=== PATIENT | male | born 1995 | race Two or more races ===

== ENCOUNTER 2018-12-03 18:18 | Emergency (ER) | payer SELFPAY ==
[~2018-12-03] VITALS: Ht 165.1 cm; Wt 90.7 kg
--- NOTE | 2018-12-03 18:38 | PHYS DOC ---
Adult General Chief Complaint Chief Complaint: CHEST WALL PAIN HPI HPI Patient is a 23 year old presented to the ER today for evaluation of productive cough with yellow sputum for 2 weeks, having chest pain sharp in nature for 3 days. The pain gets worse with cough or taking a deep breath. Patient does not smoke, he had no previous history of asthma or heart problem. Patient had no history hypertension, no history of diabetic, no history of of coronary artery disease or blood clot disorder. Review of Systems Review of Systems Constitutional: Denies fever or chills [] Eyes: Denies change in visual acuity, redness, or eye pain [] HENT: Denies nasal congestion or sore throat [] Respiratory: Positive for cough, NO shortness of breath [] Cardiovascular: Positive for sharp chest pain. GI: Denies abdominal pain, nausea, vomiting, bloody stools or diarrhea [] : Denies dysuria or hematuria [] Musculoskeletal: Denies back pain or joint pain [] Integument: Denies rash or skin lesions [] Neurologic: Denies headache, focal weakness or sensory changes [] Endocrine: Denies polyuria or polydipsia [] All other systems were reviewed and found to be within normal limits, except as documented in this note. Allergies Allergies Allergies Coded Allergies Type Severity Reaction Last Updated Verified No Known Drug Allergies 12/03/18 No Physical Exam Physical Exam Constitutional: Well developed, well nourished, no acute distress, non-toxic appearance. [] HENT: Normocephalic, atraumatic, bilateral external ears normal, oropharynx moist, no oral exudates, nose normal. [] Eyes: PERRLA, EOMI, conjunctiva normal, no discharge. [] Neck: Normal range of motion, no tenderness, supple, no stridor. [] Cardiovascular:Heart rate regular rhythm, no murmur [] Lungs & Thorax: Bilateral breath sounds clear to auscultation [] Abdomen: Bowel sounds normal, soft, no tenderness, no masses, no pulsatile masses. [] Skin: Warm, dry, no erythema, no rash. [] Back: No tenderness, no CVA tenderness. [] Extremities: No tenderness, no cyanosis, no clubbing, ROM intact, no edema. [] Neurologic: Alert and oriented X 3, normal motor function, normal sensory function, no focal deficits noted. [] Psychologic: Affect normal, judgement normal, mood normal. [] Current Patient Data Vital Signs Vital Signs Date Time Temp Pulse Resp B/P (MAP) Pulse Ox O2 Delivery O2 Flow Rate FiO2 12/03/18 19:29 74 148/84 (105) 98 Room Air 12/03/18 18:27 99.7 14 99.7 EKG EKG EKG: RATE OF 75 BPM, NO STEMI. SINUS RHYTHM, Radiology/Procedures Radiology/Procedures [] Course & Med Decision Making Course & Med Decision Making Pertinent Labs and Imaging studies reviewed. (See chart for details) [] Dragon Disclaimer Dragon Disclaimer This electronic medical record was generated, in whole or in part, using a voice recognition dictation system. Departure Departure Impression: Primary Impression: Acute bronchitis Disposition: 01 HOME, SELF-CARE Condition: STABLE Patient Instructions: Acute Bronchitis Scripts Prednisone (PREDNISONE) 50 Mg Tablet 1 TAB PO DAILY, #7 TAB Prov: EDWARDO GAMA DO 12/03/18 Azithromycin (ZITHROMAX) 250 Mg Tablet 1 PKG PO UD, #6 TAB Prov: EDWARDO GAMA DO 12/03/18 EDWARDO GAMA DO Dec 03, 2018 18:38
[2018-12-03] MEDS ORDERED: PRED50TA PO (19:20)
[2018-12-03] MEDS ORDERED: AZIT250T PO (19:20)
[2018-12-03 19:29] VITALS: BP 148/84
--- NOTE | 2018-12-03 22:12 | RAD ---
CHEST PA LATERAL History: ER PATIENT. ATRAUMATIC CHEST PAIN. PRODUCTIVE COUGH WITH RED SPUTUM. Hx COLD SYMPTOMS X3 WEEKS. NO PRIORS. Comparison: None. Heart size: Within normal limits. Catrina/mediastinum: Within normal limits Lungs: No focal airspace consolidation. Pleura: No evidence of pleural effusion. Pneumothorax: None visualized Bones: Regional skeleton appears grossly intact. Miscellaneous: None Impression: No acute radiographic findings. Electronically signed by: Dario Sandoval MD (12/03/2018 10:08 PM) [facility]
== END 2018-12-03 19:35 | disposition home or self-care (01) ==
LOC: ER 18:18
DX: J20.9 Acute bronchitis, unspecified (principal)
CPT/HCPCS: 71046; 99283

== ENCOUNTER 2018-12-11 14:24 | Emergency (ER) | payer SELFPAY ==
[~2018-12-11] VITALS: Ht 177.8 cm; Wt 90.7 kg
[~2018-12-11 14:24] MED LIST: AZIT250T PO; PRED50TA PO
[2018-12-11] MEDS ORDERED: IBUPROFEN 600 MG TABLET. PO ONE (16:45)
[2018-12-11 16:49] VITALS: BP 143/85
--- NOTE | 2018-12-11 17:31 | PHYS DOC ---
Past Medical History Past Medical History: No Pertinent History Past Surgical History: No Surgical History Alcohol Use: None Drug Use: None Adult General Chief Complaint Chief Complaint: COUGH HPI HPI Patient is a 23 year old male who presents with diagnosed with bronchitis on December 03 and finishes azithromycin antibiotic. Patient states he is still coughing which is causing him upper back and chest pain. Patient states he began to feel little bit of dizziness with the coughing today. States he has not taken any pain medicine. Afebrile. This is all been going on for about 3 weeks total. Patient rates his pain a 3 out of 10. Review of Systems Review of Systems Constitutional: Denies fever or chills [] Eyes: Denies change in visual acuity, redness, or eye pain [] HENT: Denies nasal congestion or sore throat [] Respiratory: Denies cough or shortness of breath [] Cardiovascular: No additional information not addressed in HPI [] GI: Denies abdominal pain, nausea, vomiting, bloody stools or diarrhea [] : Denies dysuria or hematuria [] Musculoskeletal: Upper back pain or joint pain [] Integument: Denies rash or skin lesions [] Neurologic: Denies headache, focal weakness or sensory changes [] Endocrine: Denies polyuria or polydipsia [] All other systems were reviewed and found to be within normal limits, except as documented in this note. Current Medications Current Medications Current Medications Medications (Trade) Dose Ordered Sig/[facility] Start Time Stop Time Status Last Admin Dose Admin Ibuprofen (Motrin) 600 mg 1X ONCE 12/11/18 16:45 12/11/18 16:46 DC 12/11/18 17:13 600 MG Allergies Allergies Allergies Coded Allergies Type Severity Reaction Last Updated Verified No Known Drug Allergies 12/03/18 No Physical Exam Physical Exam Constitutional: Well developed, well nourished, no acute distress, non-toxic appearance. [] HENT: Normocephalic, atraumatic, bilateral external ears normal, oropharynx moist, no oral exudates, nose normal. [] Eyes: PERRLA, EOMI, conjunctiva normal, no discharge. [] Neck: Normal range of motion, no tenderness, supple, no stridor. [] Cardiovascular:Heart rate regular rhythm, no murmur [] Lungs & Thorax: Bilateral breath sounds clear to auscultation [] Abdomen: Bowel sounds normal, soft, no tenderness, no masses, no pulsatile masses. [] Skin: Warm, dry, no erythema, no rash. [] Back: No tenderness, no CVA tenderness. [] Extremities: No tenderness, no cyanosis, no clubbing, ROM intact, no edema. [] Neurologic: Alert and oriented X 3, normal motor function, normal sensory function, no focal deficits noted. [] Psychologic: Affect normal, judgement normal, mood normal. [] Current Patient Data Vital Signs Vital Signs Date Time Temp Pulse Resp B/P (MAP) Pulse Ox O2 Delivery O2 Flow Rate FiO2 12/11/18 16:49 98.5 67 16 143/85 (104) 96 Room Air 98.5 EKG EKG [] Radiology/Procedures Radiology/Procedures [] Course & Med Decision Making Course & Med Decision Making Patient is a 23 year old male who presents with diagnosed with bronchitis on December 03 and finishes azithromycin antibiotic. Patient states he is still coughing which is causing him upper back and chest pain. Patient states he began to feel little bit of dizziness with the coughing today. States he has not taken any pain medicine. Afebrile. This is all been going on for about 3 weeks total. Patient rates his pain a 3 out of 10. Heart and oriented. Skin pink warm and dry. Mucous membranes are moist. Vital signs are within normal limits. Lungs are clear to auscultation. Bilateral ear tympanic pearly white. Throat is pink without exudates. He is afebrile. Patient is given ibuprofen in the ED. His pain is not pleuritic. Patient is ambulatory with a steady gait. Chest x-ray shows no acute findings. Patient is homeless is likely musculoskeletal pain from all the coughing that he has been doing for the last 3 weeks and continues to cough. Patient also just finished prednisone. Patient denies any shortness of breath. Patient is given ibuprofen states that his pain is better. Patient to follow-up with his primary care doctor to take ibuprofen every 6 hours. Dragon Disclaimer Candison Disclaimer This electronic medical record was generated, in whole or in part, using a voice recognition dictation system. Departure Departure Impression: Primary Impression: Encounter for medical screening examination Disposition: HOME, SELF-CARE Condition: STABLE Referrals: NO PCP (PCP) Patient Instructions: Back Pain, Adult Additional Instructions: FOLLOW UP WITH YOUR PRIMARY CARE PROVIDER. TAKE IBUPROFEN NEEDED FOR PAIN. RICARDO ZUNIGA TIP TESTER Dec 11, 2018 17:31
--- NOTE | 2018-12-12 08:47 | RAD ---
CHEST PA LATERAL Clinical indications: COUGH, UPPER BACK AND CHEST PAIN COMPARISON: December 03, 2018. Findings: No acute lung infiltrate or pleural effusion or pulmonary edema or lung mass or pneumothorax is seen. The heart size, pulmonary vasculature, mediastinum and both george are unremarkable. The osseous structures appear intact. Impression: No acute radiographic abnormality is seen. Electronically signed by: William Dexter MD (12/12/2018 8:42 AM) [facility]
== END 2018-12-11 17:40 | disposition home or self-care (01) ==
LOC: ER 14:24
DX: R05 Cough (principal); M54.6 Pain in thoracic spine; R07.89 Other chest pain; R42 Dizziness and giddiness; Z59.0 Homelessness
CPT/HCPCS: 71046; 99283